=== PATIENT | male | born 1970 | race Caucasian/White ===

== ENCOUNTER 2020-05-22 04:37 | Emergency (ER) | payer BC ==
[~2020-05-22] VITALS: Ht 182.9 cm; Wt 122.5 kg
[2020-05-22] MEDS ORDERED: DENIES HOME MEDS (04:46)
[2020-05-22 05:08] LABS: ABSOLUTE NEUTROPHILS 5.8 thou/uL (1.4-8.2); BASOPHILS 0.5 % (0.0-2.0); EOSINOPHILS 2.9 % (0.0-3.0); HEMATOCRIT 47.4 % (42.0-52.0); LYMPHOCYTES 25.7 % (24.0-44.0); MCH 31.8 pg (26.0-34.0); MCHC 33.7 g/dL (28.0-37.0); MCV 94.3 fL (80.0-100.0); MONOCYTES 9.7 % (1.0-8.0); PLATELET COUNT 266 thou/uL (150-400); POLYS 61.2 % (36.0-66.0); RBC 5.02 mil/uL (4.50-6.00); RDW 13.2 % (10.5-14.5); WBC 9.5 thou/uL (4.0-11.0)
[2020-05-22 05:27] LABS: CREATININE 1.3 mg/dL (0.7-1.3); POTASSIUM 3.9 mmol/L (3.5-5.1)
[2020-05-22 05:34] LABS: TOTAL BILIRUBIN 0.6 mg/dL (0.2-1.0); TOTAL PROTEIN 6.9 g/dL (6.4-8.2)
[2020-05-22] MEDS ORDERED: HYDROCODON-ACE1 EAC7 PO (05:42)
[2020-05-22] MEDS ORDERED: FLOMAX0.4 MG PO (05:42)
[2020-05-22 06:20] VITALS: BP 112/76
== END 2020-05-22 06:46 | disposition home or self-care (01) ==
LOC: ER 04:37
PROVIDERS: Emergency Medicine
DX: N20.0 Calculus of kidney (principal)